=== PATIENT | female | born 1980 | race Caucasian/White ===

== ENCOUNTER 2018-06-28 12:33 | Inpatient (IN) | payer BC, OTHER ==
[2018-06-28 16:46] LABS: ADD MAN DIFF? NO
[2018-06-28] MEDS: SODIUM CHLORIDE 0.9% 1L BAG IV* (16:51)
[2018-06-28 16:54] LABS: BASOPHILS % 0.4 % (0.0-2.0); EOSINOPHILS # 0.1 10^3/ul (0.0-0.5); EOSINOPHILS % 0.5 % (0.0-7.0); HEMATOCRIT 29.9 % (37.0-47.0); HEMOGLOBIN 9.6 g/dl (12.0-16.0); LYMPHOCYTES # 1.4 10^3/ul (0.8-2.9); LYMPHOCYTES % 13.3 % (15.0-51.0); MEAN CORPUSCULAR HEMOGLOBIN 28.9 pg (29.0-33.0); MEAN CORPUSCULAR HGB CONC 32.1 g/dl (32.0-37.0); MEAN CORPUSCULAR VOLUME 90.1 fl (82.0-101.0); MONOCYTE # 0.6 10^3/ul (0.3-0.9); MONOCYTES % 5.6 % (0.0-11.0); NEUTROPHIL # 8.4 10^3/ul (1.6-7.5); NEUTROPHILS % 79.6 % (39.0-77.0); PLATELET COUNT 230 10^3/UL (140-415); RED BLOOD COUNT 3.32 10^6/ul (4.20-5.40); RED CELL DISTRIBUTION WIDTH 14.6 % (11.5-14.5)
[2018-06-28 16:54] LABS: WHITE BLOOD COUNT 10.5 10^3/ul (4.8-10.8)
[2018-06-28] MEDS: PIPER-TAZO 3.375 GM IV (PMX) 100 ML IVPB ×2 (16:54→23:40)
[2018-06-28 17:01] LABS: ADD UMIC YES; UR ASCORBIC ACID NEGATIVE (NEGATIVE); UR BACTERIA MANY /HPF (NONE SEEN); UR BILIRUBIN (Dip) NEGATIVE (NEGATIVE); UR BLOOD (Dip) 3+ mg/dL (NEGATIVE); UR CLARITY CLOUDY (CLEAR); UR COLOR YELLOW (YELLOW); UR GLUCOSE (Dip) NEGATIVE (NEGATIVE); UR KETONES (Dip) NEGATIVE (NEGATIVE); UR LEUKOCYTE ESTERASE (Dip) 3+ Leu/ul (NEGATIVE); UR NITRITE (Dip) POSITIVE (NEGATIVE); UR RBC 10 /HPF (0-5); UR SPECIFIC GRAVITY (Dip) 1.009 (1.003-1.030); UR SQUAMOUS EPITHELIAL CELL FEW /HPF (FEW); UR TOTAL PROTEIN (Dip) 1+ mg/dl (NEGATIVE); UR UROBILINOGEN (Dip) NEGATIVE (NEGATIVE); UR WBC 79 /HPF (0-5)
[2018-06-28 17:09] LABS: INR 1.45; PROTIME 17.7 Sec (11.9-14.9); PT RATIO 1.4
[2018-06-28 17:14] LABS: ALANINE AMINOTRANSFERASE 16 IU/L (13-69); ALBUMIN 3.2 g/dl (3.3-4.9); ALBUMIN/GLOBULIN RATIO 0.91; ALKALINE PHOSPHATASE 53 IU/L (42-121); ANION GAP 12 (5-13); ASPARTATE AMINO TRANSFERASE 18 IU/L (15-46); BILIRUBIN,INDIRECT 0.2 mg/dl (0-1.1); BILIRUBIN,TOTAL 0.2 mg/dl (0.2-1.3); BLOOD UREA NITROGEN 8 mg/dl (7-20); CALCIUM 8.1 mg/dl (8.4-10.2); CARBON DIOXIDE 30 mmol/L (21-31); CREATININE 0.64 mg/dl (0.44-1.00); Estimated GFR > 60 mL/min (>60); GLUCOSE 83 mg/dl (70-220); POTASSIUM 3.2 mmol/L (3.5-5.1); SODIUM 137 mmol/L (135-144); TOTAL PROTEIN 6.7 g/dl (6.1-8.1)
[2018-06-28 17:15] LABS: CHLORIDE 95 mmol/L (97-110)
[2018-06-28] MEDS: VANCOMYCIN 1 GM (PMX) 250 ML IVPB (17:29)
[2018-06-28] MEDS ORDERED: NACL 0.9% 3 ML SYG IV (18:30)
[2018-06-28] MEDS ORDERED: VANCOMYCIN IV PER PHARMACY XX (18:30)
[2018-06-28 18:58] LABS: HEMOGLOBIN A1C 5.1 % (0-5.9)
[2018-06-28] MEDS ORDERED: ACETAMINOPHEN 325 MG TAB PO (19:00)
[2018-06-28] MEDS ORDERED: ONDANSETRON 4 MG INJ IV (19:00)
[2018-06-28 19:08] LABS: C-REACTIVE PROTEIN 22.7 mg/dl (0.0-0.9)
[2018-06-28 19:53] LABS: ERYTHROCYTE SEDIMENTATION RATE 60 mm/Hr (0-20)
[2018-06-28] MEDS: IOHEXOL 300MG/ML 150 ML BTL (20:15)
[2018-06-28] MEDS: SOD CHLORIDE 0.9% 100 ML (20:15)
[2018-06-28] MEDS: POLYETHYLENE GLYCOL 17 GM PACKET PO (21:25)
[2018-06-28] MEDS: SOD CHLORIDE 0.9% 1,000 ML IV (21:25)
[2018-06-28] MEDS: HYDROmorphONE 2 MG TAB PO (21:26)
[2018-06-28] MEDS: GABAPENTIN 400 MG CAP PO (21:26)
[2018-06-28] MEDS: POTASSIUM CHLORIDE (SR) 20 MEQ TAB PO (21:26)
[2018-06-28] MEDS: BACLOFEN 10 MG TAB PO (21:26)
[2018-06-28] MEDS: NORTRIPTYLINE 10 MG CAP PO (22:34)
[2018-06-28 22:57] LABS: LACTIC ACID 1.6 mmol/L (0.5-2.0)
[2018-06-29] MEDS ORDERED: PENDING SANTYL ORDER FOR WOUND CARE XX ×2 (02:30→11:00)
[2018-06-29] MEDS ORDERED: COLLAGENASE 5 GM (UD JAR) TOP (02:36)
[2018-06-29] MEDS: VANCOMYCIN 750 MG (PMX) 250 ML IVPB ×2 (04:51→16:58)
[2018-06-29] MEDS: PIPER-TAZO 3.375 GM IV (PMX) 100 ML IVPB ×3 (05:35→18:08)
[2018-06-29 05:52] LABS: ADD MAN DIFF? NO
[2018-06-29] MEDS: HYDROmorphONE 2 MG TAB PO ×4 (05:52→22:47)
[2018-06-29 06:01] LABS: BASOPHILS % 0.2 % (0.0-2.0); EOSINOPHILS # 0.2 10^3/ul (0.0-0.5); EOSINOPHILS % 1.2 % (0.0-7.0); HEMATOCRIT 28.2 % (37.0-47.0); HEMOGLOBIN 8.8 g/dl (12.0-16.0); LYMPHOCYTES # 1.2 10^3/ul (0.8-2.9); LYMPHOCYTES % 9.7 % (15.0-51.0); MEAN CORPUSCULAR HEMOGLOBIN 28.7 pg (29.0-33.0); MEAN CORPUSCULAR HGB CONC 31.2 g/dl (32.0-37.0); MEAN CORPUSCULAR VOLUME 91.9 fl (82.0-101.0); MEAN PLATELET VOLUME 10.5 fl (7.4-10.4); MONOCYTE # 0.8 10^3/ul (0.3-0.9); MONOCYTES % 6.5 % (0.0-11.0); NEUTROPHIL # 10.3 10^3/ul (1.6-7.5); PLATELET COUNT 229 10^3/UL (140-415); RED BLOOD COUNT 3.07 10^6/ul (4.20-5.40); RED CELL DISTRIBUTION WIDTH 14.8 % (11.5-14.5)
[2018-06-29 06:01] LABS: WHITE BLOOD COUNT 12.5 10^3/ul (4.8-10.8)
[2018-06-29 06:38] LABS: MAGNESIUM 1.8 mg/dl (1.7-2.5)
[2018-06-29 06:38] LABS: CHOL/HDL RATIO 5.2 RATIO; CHOLESTEROL 79 mg/dl (100-200); HDL CHOLESTEROL 15 mg/dl (34-88); LDL CHOLESTEROL,CALCULATED 52 mg/dl; TRIGLYCERIDES 61 mg/dl (0-149)
[2018-06-29 06:43] LABS: HEMOGLOBIN A1C 5.2 % (0-5.9)
[2018-06-29 06:47] LABS: ALANINE AMINOTRANSFERASE 16 IU/L (13-69); ALBUMIN 2.5 g/dl (3.3-4.9); ALBUMIN/GLOBULIN RATIO 0.86; ALKALINE PHOSPHATASE 48 IU/L (42-121); ANION GAP 4 (5-13); ASPARTATE AMINO TRANSFERASE 14 IU/L (15-46); BLOOD UREA NITROGEN 4 mg/dl (7-20); CALCIUM 7.6 mg/dl (8.4-10.2); CARBON DIOXIDE 25 mmol/L (21-31); CHLORIDE 107 mmol/L (97-110); CREATININE 0.52 mg/dl (0.44-1.00); Estimated GFR > 60 mL/min (>60); GLUCOSE 104 mg/dl (70-220); POTASSIUM 3.6 mmol/L (3.5-5.1); SODIUM 136 mmol/L (135-144); TOTAL PROTEIN 5.4 g/dl (6.1-8.1)
[2018-06-29 06:47] LABS: PHOSPHORUS 3.4 mg/dl (2.5-4.9)
[2018-06-29] MEDS: SOD CHLORIDE 0.9% 1,000 ML IV ×4 (07:45→20:57)
[2018-06-29] MEDS: morphine (ER) 30 MG TAB PO ×2 (08:50→20:47)
[2018-06-29] MEDS: ENOXAPARIN 30 MG/0.3 ML SYG SC (08:52)
[2018-06-29] MEDS: POLYETHYLENE GLYCOL 17 GM PACKET PO ×2 (09:00→20:48)
[2018-06-29] MEDS: ONDANSETRON 4 MG INJ IV (10:06)
[2018-06-29] MEDS: BACLOFEN 10 MG TAB PO ×3 (10:11→20:45)
[2018-06-29] MEDS: GABAPENTIN 400 MG CAP PO ×3 (10:12→20:46)
[2018-06-29] MEDS: SODIUM HYPOCHLORITE (1/40) 1 APPLIC BTL IRR ×2 (12:04→20:49)
[2018-06-29] MEDS: COLLAGENASE 5 GM (UD JAR) TOP ×2 (12:04→20:48)
[2018-06-29 13:27] LABS: AMPHETAMINE/METHAMPHETAMINE Negative (NEGATIVE); BARBITURATES Negative (NEGATIVE); BENZODIAZEPINES Negative (NEGATIVE); CANNABINOIDS Negative (NEGATIVE); COCAINE Negative (NEGATIVE)
[2018-06-29 13:31] LABS: OPIATES Positive (NEGATIVE)
[2018-06-29] MEDS: BISACODYL (EC) 5 MG TAB PO (15:12)
[2018-06-29] MEDS: ACETAMINOPHEN 325 MG TAB PO (19:07)
[2018-06-29] MEDS: NORTRIPTYLINE 10 MG CAP PO (20:45)
[2018-06-30] MEDS: PIPER-TAZO 3.375 GM IV (PMX) 100 ML IVPB ×5 (00:12→23:58)
[2018-06-30] MEDS: SOD CHLORIDE 0.9% 1,000 ML IV ×3 (02:34→14:37)
[2018-06-30] MEDS: HYDROmorphONE 2 MG TAB PO ×3 (03:50→20:40)
[2018-06-30 04:17] LABS: ADD MAN DIFF? NO
[2018-06-30 04:21] LABS: BASOPHILS % 0.4 % (0.0-2.0); EOSINOPHILS # 0.2 10^3/ul (0.0-0.5); EOSINOPHILS % 2.9 % (0.0-7.0); HEMATOCRIT 30.7 % (37.0-47.0); HEMOGLOBIN 9.1 g/dl (12.0-16.0); LYMPHOCYTES # 1.2 10^3/ul (0.8-2.9); LYMPHOCYTES % 16.5 % (15.0-51.0); MEAN CORPUSCULAR HEMOGLOBIN 28.4 pg (29.0-33.0); MEAN CORPUSCULAR HGB CONC 29.6 g/dl (32.0-37.0); MEAN CORPUSCULAR VOLUME 95.9 fl (82.0-101.0); MEAN PLATELET VOLUME 10.6 fl (7.4-10.4); MONOCYTE # 0.5 10^3/ul (0.3-0.9); MONOCYTES % 6.1 % (0.0-11.0); NEUTROPHIL # 5.5 10^3/ul (1.6-7.5); NEUTROPHILS % 73.6 % (39.0-77.0); PLATELET COUNT 229 10^3/UL (140-415); RED CELL DISTRIBUTION WIDTH 14.6 % (11.5-14.5)
[2018-06-30 04:21] LABS: WHITE BLOOD COUNT 7.5 10^3/ul (4.8-10.8)
[2018-06-30 04:41] LABS: ANION GAP 5 (5-13); BLOOD UREA NITROGEN 4 mg/dl (7-20); CALCIUM 7.7 mg/dl (8.4-10.2); CARBON DIOXIDE 23 mmol/L (21-31); CHLORIDE 114 mmol/L (97-110); CREATININE 0.49 mg/dl (0.44-1.00); Estimated GFR > 60 mL/min (>60); GLUCOSE 114 mg/dl (70-220); POTASSIUM 3.3 mmol/L (3.5-5.1); SODIUM 142 mmol/L (135-144)
[2018-06-30 04:43] LABS: PHOSPHORUS 3.7 mg/dl (2.5-4.9)
[2018-06-30 04:46] LABS: VANCOMYCIN,TROUGH 7.2 ug/ml (10.0-20.0)
[2018-06-30] MEDS: VANCOMYCIN 1 GM 250 ML IVPB ×2 (05:00→18:03)
[2018-06-30] MEDS: SILVER NITRATE SWAB TOP (08:00)
[2018-06-30] MEDS: morphine (ER) 30 MG TAB PO ×2 (09:00→21:45)
[2018-06-30] MEDS: ENOXAPARIN 30 MG/0.3 ML SYG SC (09:00)
[2018-06-30] MEDS: COLLAGENASE 5 GM (UD JAR) TOP ×2 (09:00→21:46)
[2018-06-30] MEDS: LIDOCAINE 1%/EPI 30 ML INJ INJ (09:00)
[2018-06-30] MEDS: POLYETHYLENE GLYCOL 17 GM PACKET PO ×2 (09:00→20:42)
[2018-06-30] MEDS: SODIUM HYPOCHLORITE (1/40) 1 APPLIC BTL IRR ×2 (09:00→21:46)
[2018-06-30] MEDS: BACLOFEN 10 MG TAB PO ×3 (09:04→20:40)
[2018-06-30] MEDS: GABAPENTIN 400 MG CAP PO ×3 (09:04→20:41)
[2018-06-30] MEDS: LIDOCAINE 1%/EPI (MDV) 50 ML INJ INJ (14:00)
[2018-06-30] MEDS: POTASSIUM CHLORIDE (SR) 10 MEQ TAB PO (18:04)
[2018-06-30] MEDS: NORTRIPTYLINE 10 MG CAP PO (20:41)
[2018-07-01] MEDS: VANCOMYCIN 1 GM 250 ML IVPB (04:55)
[2018-07-01] MEDS: HYDROmorphONE 2 MG TAB PO ×3 (05:30→18:19)
[2018-07-01 06:07] LABS: ADD MAN DIFF? NO
[2018-07-01 06:08] LABS: BASOPHILS % 0.3 % (0.0-2.0); EOSINOPHILS # 0.3 10^3/ul (0.0-0.5); EOSINOPHILS % 2.8 % (0.0-7.0); HEMATOCRIT 32.8 % (37.0-47.0); HEMOGLOBIN 10.2 g/dl (12.0-16.0); LYMPHOCYTES # 2.1 10^3/ul (0.8-2.9); LYMPHOCYTES % 22.9 % (15.0-51.0); MEAN CORPUSCULAR HEMOGLOBIN 28.6 pg (29.0-33.0); MEAN CORPUSCULAR HGB CONC 31.1 g/dl (32.0-37.0); MEAN CORPUSCULAR VOLUME 91.9 fl (82.0-101.0); MEAN PLATELET VOLUME 10.2 fl (7.4-10.4); MONOCYTE # 0.5 10^3/ul (0.3-0.9); MONOCYTES % 5.1 % (0.0-11.0); NEUTROPHIL # 6.1 10^3/ul (1.6-7.5); NEUTROPHILS % 68.7 % (39.0-77.0); PLATELET COUNT 348 10^3/UL (140-415); RED BLOOD COUNT 3.57 10^6/ul (4.20-5.40); RED CELL DISTRIBUTION WIDTH 14.6 % (11.5-14.5)
[2018-07-01 06:43] LABS: ANION GAP 6 (5-13); BLOOD UREA NITROGEN 3 mg/dl (7-20); CALCIUM 8.3 mg/dl (8.4-10.2); CARBON DIOXIDE 24 mmol/L (21-31); CHLORIDE 110 mmol/L (97-110); CREATININE 0.48 mg/dl (0.44-1.00); Estimated GFR > 60 mL/min (>60); GLUCOSE 79 mg/dl (70-220); POTASSIUM 3.8 mmol/L (3.5-5.1); SODIUM 140 mmol/L (135-144)
[2018-07-01] MEDS: PIPER-TAZO 3.375 GM IV (PMX) 100 ML IVPB ×2 (06:55→11:57)
[2018-07-01 06:56] LABS: PHOSPHORUS 3.6 mg/dl (2.5-4.9)
[2018-07-01] MEDS: SOD CHLORIDE 0.9% 1,000 ML IV ×2 (06:56→23:21)
[2018-07-01] MEDS: POLYETHYLENE GLYCOL 17 GM PACKET PO ×2 (09:00→21:00)
[2018-07-01] MEDS: morphine (ER) 30 MG TAB PO ×2 (10:27→21:20)
[2018-07-01] MEDS: ENOXAPARIN 30 MG/0.3 ML SYG SC (10:27)
[2018-07-01] MEDS: BACLOFEN 10 MG TAB PO ×3 (10:27→21:20)
[2018-07-01] MEDS: GABAPENTIN 400 MG CAP PO ×3 (10:27→21:21)
[2018-07-01] MEDS: COLLAGENASE 5 GM (UD JAR) TOP ×2 (10:28→21:23)
[2018-07-01] MEDS: SODIUM HYPOCHLORITE (1/40) 1 APPLIC BTL IRR ×2 (10:33→21:23)
[2018-07-01] MEDS: CEFTRIAXONE 1 GM/50 ML (PMX) 50 ML IVPB (16:07)
[2018-07-01] MEDS: NORTRIPTYLINE 10 MG CAP PO (21:21)
[2018-07-01] MEDS: BALSAM PERU/CASTOR OIL 60 GM TUBE TOP (21:23)
[2018-07-02] MEDS: HYDROmorphONE 2 MG TAB PO ×4 (04:00→22:40)
[2018-07-02 05:51] LABS: ADD MAN DIFF? NO
[2018-07-02 06:07] LABS: WHITE BLOOD COUNT 6.3 10^3/ul (4.8-10.8)
[2018-07-02 06:07] LABS: BASOPHILS % 0.5 % (0.0-2.0); EOSINOPHILS # 0.3 10^3/ul (0.0-0.5); EOSINOPHILS % 5.3 % (0.0-7.0); HEMOGLOBIN 9.1 g/dl (12.0-16.0); LYMPHOCYTES # 1.7 10^3/ul (0.8-2.9); LYMPHOCYTES % 26.6 % (15.0-51.0); MEAN CORPUSCULAR HEMOGLOBIN 28.5 pg (29.0-33.0); MEAN CORPUSCULAR HGB CONC 31.4 g/dl (32.0-37.0); MEAN CORPUSCULAR VOLUME 90.9 fl (82.0-101.0); MEAN PLATELET VOLUME 10.1 fl (7.4-10.4); MONOCYTE # 0.4 10^3/ul (0.3-0.9); MONOCYTES % 6.1 % (0.0-11.0); NEUTROPHIL # 3.8 10^3/ul (1.6-7.5); NEUTROPHILS % 61.2 % (39.0-77.0); PLATELET COUNT 403 10^3/UL (140-415); RED BLOOD COUNT 3.19 10^6/ul (4.20-5.40); RED CELL DISTRIBUTION WIDTH 14.6 % (11.5-14.5)
[2018-07-02 06:56] LABS: ANION GAP 8 (5-13); CALCIUM 8.3 mg/dl (8.4-10.2); CARBON DIOXIDE 24 mmol/L (21-31); CHLORIDE 111 mmol/L (97-110); CREATININE 0.48 mg/dl (0.44-1.00); Estimated GFR > 60 mL/min (>60); GLUCOSE 82 mg/dl (70-220); POTASSIUM 3.4 mmol/L (3.5-5.1); SODIUM 143 mmol/L (135-144)
[2018-07-02 07:00] LABS: PHOSPHORUS 4.1 mg/dl (2.5-4.9)
[2018-07-02 07:00] LABS: MAGNESIUM 1.9 mg/dl (1.7-2.5)
[2018-07-02 07:01] LABS: BLOOD UREA NITROGEN < 2 mg/dl (7-20)
[2018-07-02] MEDS: POLYETHYLENE GLYCOL 17 GM PACKET PO ×2 (09:00→21:00)
[2018-07-02] MEDS: COLLAGENASE 5 GM (UD JAR) TOP ×2 (09:31→21:00)
[2018-07-02] MEDS: morphine (ER) 30 MG TAB PO ×2 (09:31→21:51)
[2018-07-02] MEDS: BACLOFEN 10 MG TAB PO ×3 (09:31→21:51)
[2018-07-02] MEDS: ENOXAPARIN 30 MG/0.3 ML SYG SC (09:31)
[2018-07-02] MEDS: GABAPENTIN 400 MG CAP PO ×3 (09:31→21:51)
[2018-07-02] MEDS: BALSAM PERU/CASTOR OIL 60 GM TUBE TOP ×2 (09:34→21:56)
[2018-07-02] MEDS: SODIUM HYPOCHLORITE (1/40) 1 APPLIC BTL IRR ×2 (09:34→21:56)
[2018-07-02] MEDS: SOD CHLORIDE 0.9% 1,000 ML IV (13:53)
[2018-07-02] MEDS: POTASSIUM CHLORIDE (SR) 20 MEQ TAB PO (15:14)
[2018-07-02] MEDS: CEFTRIAXONE 1 GM/50 ML (PMX) 50 ML IVPB (15:14)
[2018-07-02] MEDS: FAMOTIDINE 20 MG TAB PO (21:51)
[2018-07-02] MEDS: NORTRIPTYLINE 10 MG CAP PO (21:51)
[2018-07-02] MEDS: ASCORBIC ACID 500 MG TAB PO (21:51)
[2018-07-02] MEDS: LACTOBACILLUS RHAMNOSUS CAP PO (21:51)
[2018-07-03] MEDS: SOD CHLORIDE 0.9% 1,000 ML IV (03:01)
[2018-07-03] MEDS ORDERED: AL HYDROX/MG HYDROX/SIMETH 30 ML CUP PO (03:30)
[2018-07-03] MEDS: LACTOBACILLUS RHAMNOSUS CAP PO ×2 (08:26→20:47)
[2018-07-03] MEDS: COLLAGENASE 5 GM (UD JAR) TOP ×2 (08:26→20:49)
[2018-07-03] MEDS: BALSAM PERU/CASTOR OIL 60 GM TUBE TOP ×2 (08:26→20:50)
[2018-07-03] MEDS: GABAPENTIN 400 MG CAP PO ×4 (08:26→20:48)
[2018-07-03] MEDS: ASCORBIC ACID 500 MG TAB PO ×2 (08:26→20:48)
[2018-07-03] MEDS: BACLOFEN 10 MG TAB PO ×3 (08:27→20:48)
[2018-07-03] MEDS: ZINC SULFATE 220 MG CAP PO (08:27)
[2018-07-03] MEDS: HYDROmorphONE 2 MG TAB PO ×3 (08:28→22:25)
[2018-07-03] MEDS: ENOXAPARIN 40 MG/0.4 ML SYG SC (08:29)
[2018-07-03] MEDS: POLYETHYLENE GLYCOL 17 GM PACKET PO ×2 (08:29→20:47)
[2018-07-03] MEDS: SODIUM HYPOCHLORITE (1/40) 1 APPLIC BTL IRR ×2 (08:34→20:49)
[2018-07-03 08:39] LABS: ADD MAN DIFF? NO
[2018-07-03 08:42] LABS: BASOPHILS % 0.5 % (0.0-2.0); EOSINOPHILS # 0.3 10^3/ul (0.0-0.5); EOSINOPHILS % 3.9 % (0.0-7.0); HEMATOCRIT 33.3 % (37.0-47.0); HEMOGLOBIN 10.3 g/dl (12.0-16.0); LYMPHOCYTES # 1.3 10^3/ul (0.8-2.9); LYMPHOCYTES % 19.8 % (15.0-51.0); MEAN CORPUSCULAR HEMOGLOBIN 28.4 pg (29.0-33.0); MEAN CORPUSCULAR HGB CONC 30.9 g/dl (32.0-37.0); MEAN CORPUSCULAR VOLUME 91.7 fl (82.0-101.0); MEAN PLATELET VOLUME 9.6 fl (7.4-10.4); MONOCYTE # 0.4 10^3/ul (0.3-0.9); MONOCYTES % 5.6 % (0.0-11.0); NEUTROPHIL # 4.6 10^3/ul (1.6-7.5); NEUTROPHILS % 69.7 % (39.0-77.0); PLATELET COUNT 462 10^3/UL (140-415); RED BLOOD COUNT 3.63 10^6/ul (4.20-5.40); RED CELL DISTRIBUTION WIDTH 14.7 % (11.5-14.5)
[2018-07-03 08:42] LABS: WHITE BLOOD COUNT 6.7 10^3/ul (4.8-10.8)
[2018-07-03 09:09] LABS: ANION GAP 11 (5-13); BLOOD UREA NITROGEN 3 mg/dl (7-20); CALCIUM 8.6 mg/dl (8.4-10.2); CARBON DIOXIDE 25 mmol/L (21-31); CHLORIDE 108 mmol/L (97-110); CREATININE 0.52 mg/dl (0.44-1.00); Estimated GFR > 60 mL/min (>60); GLUCOSE 107 mg/dl (70-220); POTASSIUM 3.8 mmol/L (3.5-5.1); SODIUM 144 mmol/L (135-144)
[2018-07-03 09:09] LABS: PHOSPHORUS 4.9 mg/dl (2.5-4.9)
[2018-07-03] MEDS: morphine (ER) 30 MG TAB PO ×2 (09:22→20:48)
[2018-07-03] MEDS ORDERED: VANCOMYCIN IV PER PHARMACY XX (12:30)
[2018-07-03] MEDS: ONDANSETRON 4 MG INJ IV (12:47)
[2018-07-03] MEDS: BISACODYL (EC) 5 MG TAB PO (12:47)
[2018-07-03] MEDS ORDERED: VANCOMYCIN HCL 1.25 GM in SOD CHLORIDE 0.9% 250 ML IVPB (15:00)
[2018-07-03] MEDS: CEFTRIAXONE 1 GM/50 ML (PMX) 50 ML IVPB (15:00)
[2018-07-03] MEDS: clonAZEPAM 0.5 MG TAB PO (17:15)
[2018-07-03] MEDS: FAMOTIDINE 20 MG TAB PO (20:48)
[2018-07-03] MEDS: NORTRIPTYLINE 10 MG CAP PO (20:49)
[2018-07-03] MEDS ORDERED: VANCOMYCIN 750 MG (PMX) 250 ML IVPB (23:00)
[2018-07-04] MEDS: HYDROmorphONE 2 MG TAB PO ×4 (04:51→23:41)
[2018-07-04] MEDS: ACETAMINOPHEN 325 MG TAB PO (06:41)
[2018-07-04] MEDS: GABAPENTIN 400 MG CAP PO ×4 (08:47→21:02)
[2018-07-04] MEDS: LACTOBACILLUS RHAMNOSUS CAP PO ×2 (08:47→21:01)
[2018-07-04] MEDS: morphine (ER) 30 MG TAB PO ×2 (08:48→21:02)
[2018-07-04] MEDS: ASCORBIC ACID 500 MG TAB PO ×2 (08:49→21:03)
[2018-07-04] MEDS: POLYETHYLENE GLYCOL 17 GM PACKET PO ×2 (08:49→21:00)
[2018-07-04] MEDS: COLLAGENASE 5 GM (UD JAR) TOP ×2 (08:49→21:00)
[2018-07-04] MEDS: ZINC SULFATE 220 MG CAP PO (08:49)
[2018-07-04] MEDS: BACLOFEN 10 MG TAB PO ×3 (08:49→21:02)
[2018-07-04] MEDS: ENOXAPARIN 40 MG/0.4 ML SYG SC (08:52)
[2018-07-04] MEDS: SODIUM HYPOCHLORITE (1/40) 1 APPLIC BTL IRR ×2 (08:53→21:09)
[2018-07-04] MEDS: BALSAM PERU/CASTOR OIL 60 GM TUBE TOP ×2 (08:53→21:08)
[2018-07-04] MEDS ORDERED: BISACODYL (EC) 5 MG TAB PO (14:30)
[2018-07-04] MEDS: LIDOCAINE 1% (MPF) 5 ML VIAL SC (15:05)
[2018-07-04] MEDS: CEFTRIAXONE 1 GM/50 ML (PMX) 50 ML IVPB (17:26)
[2018-07-04] MEDS: VANCOMYCIN HCL 1.25 GM in SOD CHLORIDE 0.9% 250 ML IVPB (17:34)
[2018-07-04] MEDS: NORTRIPTYLINE 10 MG CAP PO (21:01)
[2018-07-04] MEDS: FAMOTIDINE 20 MG TAB PO (21:02)
[2018-07-04] MEDS: BISACODYL 10 MG SUPP PR (21:45)
[2018-07-05] MEDS: VANCOMYCIN 750 MG (PMX) 250 ML IVPB ×3 (00:56→17:48)
[2018-07-05] MEDS: HYDROmorphONE 2 MG TAB PO ×3 (05:57→18:56)
[2018-07-05] MEDS: morphine (ER) 30 MG TAB PO ×2 (08:58→21:25)
[2018-07-05] MEDS: ASCORBIC ACID 500 MG TAB PO ×2 (08:58→21:24)
[2018-07-05] MEDS: ZINC SULFATE 220 MG CAP PO (08:58)
[2018-07-05] MEDS: GABAPENTIN 400 MG CAP PO ×4 (08:58→21:24)
[2018-07-05] MEDS: ENOXAPARIN 40 MG/0.4 ML SYG SC (08:58)
[2018-07-05] MEDS: LACTOBACILLUS RHAMNOSUS CAP PO ×2 (08:59→21:24)
[2018-07-05] MEDS: BACLOFEN 10 MG TAB PO ×3 (08:59→21:24)
[2018-07-05] MEDS: COLLAGENASE 5 GM (UD JAR) TOP ×2 (09:00→21:00)
[2018-07-05] MEDS: POLYETHYLENE GLYCOL 17 GM PACKET PO ×2 (09:00→21:00)
[2018-07-05] MEDS: SODIUM HYPOCHLORITE (1/40) 1 APPLIC BTL IRR ×2 (09:01→21:29)
[2018-07-05] MEDS: BALSAM PERU/CASTOR OIL 60 GM TUBE TOP ×2 (09:01→21:29)
[2018-07-05] MEDS: ACETAMINOPHEN 325 MG TAB PO (11:11)
[2018-07-05] MEDS: CEFTRIAXONE 1 GM/50 ML (PMX) 50 ML IVPB (14:59)
[2018-07-05 16:37] LABS: CREATININE 0.48 mg/dl (0.44-1.00)
[2018-07-05 16:37] LABS: BLOOD UREA NITROGEN 12 mg/dl (7-20)
[2018-07-05] MEDS: MAGNESIUM HYDROXIDE 30ML CUP PO (18:56)
[2018-07-05] MEDS: FAMOTIDINE 20 MG TAB PO (21:00)
[2018-07-05] MEDS: NORTRIPTYLINE 10 MG CAP PO (21:24)
[2018-07-06] MEDS: HYDROmorphONE 2 MG TAB PO ×4 (01:09→19:13)
[2018-07-06] MEDS: VANCOMYCIN 1 GM 250 ML IVPB ×2 (05:34→17:00)
[2018-07-06] MEDS: ZINC SULFATE 220 MG CAP PO (09:00)
[2018-07-06] MEDS: POLYETHYLENE GLYCOL 17 GM PACKET PO (09:00)
[2018-07-06] MEDS: BACLOFEN 10 MG TAB PO ×2 (10:03→13:00)
[2018-07-06] MEDS: ASCORBIC ACID 500 MG TAB PO (10:03)
[2018-07-06] MEDS: GABAPENTIN 400 MG CAP PO ×3 (10:03→19:12)
[2018-07-06] MEDS: morphine (ER) 30 MG TAB PO (10:07)
[2018-07-06] MEDS: LACTOBACILLUS RHAMNOSUS CAP PO (10:08)
[2018-07-06] MEDS: ENOXAPARIN 40 MG/0.4 ML SYG SC (10:13)
[2018-07-06] MEDS: BALSAM PERU/CASTOR OIL 60 GM TUBE TOP (18:00)
[2018-07-06] MEDS: SODIUM HYPOCHLORITE (1/40) 1 APPLIC BTL IRR (18:00)
[2018-07-06] MEDS: COLLAGENASE 5 GM (UD JAR) TOP (18:00)
== END 2018-07-06 19:55 | disposition home health service (06) | DRG 571 ==
LOC: E/R 12:33 → PP2 18:38
PROC: 0JB90ZZ Excision of Buttock Subcutaneous Tissue and Fascia, Open Approach (ICD-10-PCS; principal; 2018-06-30)
PROC: 0KBN0ZZ Excision of Right Hip Muscle, Open Approach (ICD-10-PCS; 2018-06-30)
PROC: 02HV33Z Insertion of Infusion Device into Superior Vena Cava, Percutaneous Approach (ICD-10-PCS; 2018-07-04)
DX: L89.154 Pressure ulcer of sacral region, stage 4 (principal); T83.511A Infection and inflammatory reaction due to indwelling urethral catheter, initial encounter; G82.20 Paraplegia, unspecified; N39.0 Urinary tract infection, site not specified; R65.10 Systemic inflammatory response syndrome (SIRS) of non-infectious origin without acute organ dysfunction; E44.0 Moderate protein-calorie malnutrition; M46.28 Osteomyelitis of vertebra, sacral and sacrococcygeal region; L08.89 Other specified local infections of the skin and subcutaneous tissue; L89.323 Pressure ulcer of left buttock, stage 3; B95.62 Methicillin resistant Staphylococcus aureus infection as the cause of diseases classified elsewhere; Z68.23 Body mass index [BMI] 23.0-23.9, adult; G89.4 Chronic pain syndrome; F32.9 Major depressive disorder, single episode, unspecified; Z72.0 Tobacco use; Z99.3 Dependence on wheelchair; E83.51 Hypocalcemia; E88.09 Other disorders of plasma-protein metabolism, not elsewhere classified; N31.8 Other neuromuscular dysfunction of bladder; F11.90 Opioid use, unspecified, uncomplicated; B96.4 Proteus (mirabilis) (morganii) as the cause of diseases classified elsewhere; B96.1 Klebsiella pneumoniae [K. pneumoniae] as the cause of diseases classified elsewhere
CPT/HCPCS: 36569; 71045; 74177; 76937; 80048; 80053; 80061; 80202; 80307; 81001; 81025; 82565; 83036; 83605; 83735; 84100; 84443; 84520; 85025; 85610; 85651; 85730; 86140; 87040; 87070; 87081; 87086; 96374; 96375; 99285-25

== ENCOUNTER 2018-07-21 05:57 | Emergency (ER) | payer BC, OTHER | END 2018-07-21 08:05 | disposition home or self-care (01) | LOC: FTE 05:57 | DX: G82.20 Paraplegia, unspecified (principal); L89.159 Pressure ulcer of sacral region, unspecified stage; Z22.322 Carrier or suspected carrier of Methicillin resistant Staphylococcus aureus; Z45.2 Encounter for adjustment and management of vascular access device; Z46.6 Encounter for fitting and adjustment of urinary device | CPT/HCPCS: 51702; 99283-25 ==

== ENCOUNTER 2018-08-13 11:23 | Inpatient (IN) | payer BC, OTHER ==
[2018-08-13 11:51] LABS: ADD MAN DIFF? NO
[2018-08-13] MEDS: LIDOCAINE 1% (MPF) 5 ML VIAL SC (11:51)
[2018-08-13] MEDS: SODIUM CHLORIDE 0.9% 1L BAG IV* (11:51)
[2018-08-13 12:06] LABS: WHITE BLOOD COUNT 6.6 10^3/ul (4.8-10.8)
[2018-08-13 12:06] LABS: BASOPHILS % 0.5 % (0.0-2.0); EOSINOPHILS # 0.2 10^3/ul (0.0-0.5); EOSINOPHILS % 3.3 % (0.0-7.0); HEMATOCRIT 29.1 % (37.0-47.0); LYMPHOCYTES # 1.1 10^3/ul (0.8-2.9); MEAN CORPUSCULAR HEMOGLOBIN 27.3 pg (29.0-33.0); MEAN CORPUSCULAR HGB CONC 30.9 g/dl (32.0-37.0); MEAN CORPUSCULAR VOLUME 88.2 fl (82.0-101.0); MEAN PLATELET VOLUME 9.6 fl (7.4-10.4); MONOCYTE # 0.6 10^3/ul (0.3-0.9); MONOCYTES % 8.5 % (0.0-11.0); NEUTROPHIL # 4.7 10^3/ul (1.6-7.5); NEUTROPHILS % 70.6 % (39.0-77.0); PLATELET COUNT 262 10^3/UL (140-415); RED CELL DISTRIBUTION WIDTH 14.2 % (11.5-14.5)
[2018-08-13 12:22] LABS: INR 1.17; PT RATIO 1.2
[2018-08-13 12:23] LABS: PARTIAL THROMBOPLASTIN TIME 38.6 Sec (23.0-35.0)
[2018-08-13 12:29] LABS: ALANINE AMINOTRANSFERASE 23 IU/L (13-69); ALBUMIN 3.3 g/dl (3.3-4.9); ALBUMIN/GLOBULIN RATIO 0.94; ALKALINE PHOSPHATASE 65 IU/L (42-121); ANION GAP 8 (5-13); ASPARTATE AMINO TRANSFERASE 30 IU/L (15-46); BILIRUBIN,INDIRECT 0.1 mg/dl (0-1.1); BILIRUBIN,TOTAL 0.1 mg/dl (0.2-1.3); BLOOD UREA NITROGEN 14 mg/dl (7-20); CALCIUM 8.4 mg/dl (8.4-10.2); CARBON DIOXIDE 29 mmol/L (21-31); CHLORIDE 101 mmol/L (97-110); CREATININE 0.54 mg/dl (0.44-1.00); Estimated GFR > 60 mL/min (>60); GLUCOSE 93 mg/dl (70-220); POTASSIUM 3.4 mmol/L (3.5-5.1); SODIUM 138 mmol/L (135-144); TOTAL PROTEIN 6.8 g/dl (6.1-8.1)
[2018-08-13 12:39] LABS: TROPONIN-I < 0.012 ng/ml (0.000-0.120)
[2018-08-13] MEDS: PIPER-TAZO 3.375 GM IV (PMX) 100 ML IVPB (13:35)
[2018-08-13] MEDS ORDERED: VANCOMYCIN IV PER PHARMACY XX (14:00)
[2018-08-13] MEDS ORDERED: LORAZEPAM 2 MG INJ IV (14:00)
[2018-08-13] MEDS ORDERED: hydrALAzine 20 MG INJ IV (14:00)
[2018-08-13] MEDS ORDERED: morphine (ER) 30 MG TAB PO (14:00)
[2018-08-13] MEDS ORDERED: MAGNESIUM HYDROXIDE 30ML CUP PO (14:00)
[2018-08-13] MEDS ORDERED: NITROGLYCERIN (SL) 0.4 MG TAB SL (14:00)
[2018-08-13] MEDS ORDERED: NACL 0.9% 3 ML SYG IV (14:00)
[2018-08-13] MEDS ORDERED: ALBUTEROL/IPRATROPIUM (NEB) 3 ML AMP HHN (14:00)
[2018-08-13] MEDS ORDERED: ONDANSETRON 4 MG INJ IV (14:00)
[2018-08-13] MEDS ORDERED: ACETAMINOPHEN 325 MG TAB PO (14:00)
[2018-08-13] MEDS ORDERED: DOCUSATE SODIUM 100 MG CAP PO (14:00)
[2018-08-13] MEDS ORDERED: clonAZEPAM 0.5 MG TAB PO (14:00)
[2018-08-13 14:11] LABS: URINE BLOOD (Dip) POC 3+ (NEGATIVE); URINE GLUCOSE (Dip) POC Negative (NEGATIVE); URINE KETONES (Dip) POC Negative (NEGATIVE); URINE LEUKOCYTE EST (Dip) POC Trace (NEGATIVE); URINE NITRITE (Dip) POC Negative (NEGATIVE); URINE TOTAL PROTEIN POC Negative (NEGATIVE)
[2018-08-13] MEDS: POTASSIUM CHLORIDE (SR) 20 MEQ TAB PO (14:17)
[2018-08-13] MEDS: VANCOMYCIN 1 GM (PMX) 250 ML IVPB (14:17)
[2018-08-13 14:26] LABS: ADD UMIC YES; UR ASCORBIC ACID NEGATIVE (NEGATIVE); UR BILIRUBIN (Dip) NEGATIVE (NEGATIVE); UR BLOOD (Dip) 3+ mg/dL (NEGATIVE); UR CLARITY SLIGHTLY CLOUDY (CLEAR); UR COLOR YELLOW (YELLOW); UR GLUCOSE (Dip) NEGATIVE (NEGATIVE); UR KETONES (Dip) NEGATIVE (NEGATIVE); UR LEUKOCYTE ESTERASE (Dip) NEGATIVE Leu/ul (NEGATIVE); UR NITRITE (Dip) NEGATIVE (NEGATIVE); UR RBC 23 /HPF (0-5); UR SPECIFIC GRAVITY (Dip) 1.011 (1.003-1.030); UR TOTAL PROTEIN (Dip) NEGATIVE (NEGATIVE); UR UROBILINOGEN (Dip) NEGATIVE (NEGATIVE); UR WBC 5 /HPF (0-5)
[2018-08-13 14:43] LABS: FREE T4 (FREE THYROXINE) 1.09 ng/dl (0.64-1.79)
[2018-08-13] MEDS: SOD CHLORIDE 0.45% 1,000 ML IV (16:56)
[2018-08-13] MEDS: OXYBUTYNIN 5 MG TAB PO ×2 (16:57→23:38)
[2018-08-13 18:16] LABS: LACTIC ACID 0.6 mmol/L (0.5-2.0)
[2018-08-13] MEDS: morphine 2 MG INJ IV ×2 (18:33→23:37)
[2018-08-13] MEDS: BACLOFEN 10 MG TAB PO (20:53)
[2018-08-13] MEDS: LACTOBACILLUS RHAMNOSUS CAP PO (20:53)
[2018-08-13] MEDS: morphine (ER) 15 MG TAB PO (20:56)
[2018-08-13] MEDS: NORTRIPTYLINE 10 MG CAP PO (22:05)
[2018-08-13] MEDS: clonAZEPAM 0.5 MG TAB PO (23:00)
[2018-08-13] MEDS: GABAPENTIN 400 MG CAP PO (23:37)
[2018-08-14] MEDS: SOD CHLORIDE 0.9% 1,000 ML IV (02:26)
[2018-08-14] MEDS ORDERED: VANCOMYCIN IV PER PHARMACY XX (02:30)
[2018-08-14] MEDS: SOD CHLORIDE 0.45% 1,000 ML IV (03:48)
[2018-08-14] MEDS: PIPER-TAZO 3.375 GM IV (PMX) 100 ML IVPB ×4 (03:49→18:11)
[2018-08-14] MEDS ORDERED: ALBUTEROL/IPRATROPIUM (NEB) 3 ML AMP HHN (04:00)
[2018-08-14] MEDS: OXYBUTYNIN 5 MG TAB PO ×4 (06:00→18:00)
[2018-08-14] MEDS: VANCOMYCIN 1 GM 250 ML IVPB ×2 (06:32→18:44)
[2018-08-14 06:55] LABS: ADD MAN DIFF? NO
[2018-08-14 07:04] LABS: BASOPHILS % 0.5 % (0.0-2.0); EOSINOPHILS # 0.3 10^3/ul (0.0-0.5); EOSINOPHILS % 6.4 % (0.0-7.0); HEMOGLOBIN 8.4 g/dl (12.0-16.0); LYMPHOCYTES # 0.9 10^3/ul (0.8-2.9); LYMPHOCYTES % 22.1 % (15.0-51.0); MONOCYTE # 0.5 10^3/ul (0.3-0.9); MONOCYTES % 11.3 % (0.0-11.0); NEUTROPHIL # 2.4 10^3/ul (1.6-7.5); NEUTROPHILS % 59.7 % (39.0-77.0); PLATELET COUNT 190 10^3/UL (140-415); RED BLOOD COUNT 3.11 10^6/ul (4.20-5.40); RED CELL DISTRIBUTION WIDTH 14.2 % (11.5-14.5)
[2018-08-14 07:04] LABS: WHITE BLOOD COUNT 4.1 10^3/ul (4.8-10.8)
[2018-08-14 07:31] LABS: ANION GAP 6 (5-13); BLOOD UREA NITROGEN 8 mg/dl (7-20); CALCIUM 7.7 mg/dl (8.4-10.2); CARBON DIOXIDE 26 mmol/L (21-31); CHLORIDE 110 mmol/L (97-110); CREATININE 0.47 mg/dl (0.44-1.00); Estimated GFR > 60 mL/min (>60); GLUCOSE 109 mg/dl (70-220); MAGNESIUM 2.2 mg/dl (1.7-2.5); PHOSPHORUS 4.3 mg/dl (2.5-4.9); SODIUM 142 mmol/L (135-144)
[2018-08-14 07:32] LABS: CHOLESTEROL 90 mg/dl (100-200)
[2018-08-14 07:32] LABS: CHOL/HDL RATIO 4.5 RATIO; HDL CHOLESTEROL 20 mg/dl (34-88); LDL CHOLESTEROL,CALCULATED 56 mg/dl; TRIGLYCERIDES 69 mg/dl (0-149)
[2018-08-14 08:54] LABS: HEMOGLOBIN A1C 5.4 % (0-5.9)
[2018-08-14] MEDS: BACLOFEN 10 MG TAB PO ×3 (09:00→19:53)
[2018-08-14] MEDS: LACTOBACILLUS RHAMNOSUS CAP PO ×2 (09:00→19:53)
[2018-08-14] MEDS: ZINC SULFATE 220 MG CAP PO (09:00)
[2018-08-14] MEDS: GABAPENTIN 400 MG CAP PO ×4 (09:00→19:55)
[2018-08-14] MEDS: morphine (ER) 15 MG TAB PO ×2 (09:00→19:55)
[2018-08-14] MEDS: SOD CHLORIDE 0.9% 500 ML IV (10:00)
[2018-08-14] MEDS ORDERED: CEPASTAT LOZENGE MT (12:30)
[2018-08-14] MEDS ORDERED: GUAIFENESIN 20 MG/ML 5ML CUP PO (12:30)
[2018-08-14] MEDS ORDERED: GABAPENTIN 400 MG CAP PO (13:00)
[2018-08-14] MEDS: morphine 2 MG INJ IV (13:04)
[2018-08-14] MEDS ORDERED: PENDING SANTYL ORDER FOR WOUND CARE XX (13:30)
[2018-08-14] MEDS: COLLAGENASE 5 GM (UD JAR) TOP (13:30)
[2018-08-14] MEDS: HYDROCODONE/APAP (5/325) TAB PO (18:10)
[2018-08-14] MEDS: NORTRIPTYLINE 10 MG CAP PO (19:53)
== END 2018-08-14 20:30 | disposition home health service (06) | DRG 593 ==
LOC: 5EC 08-14 00:15 → E/R 11:23 → 2NE 13:08
PROC: 02HV33Z Insertion of Infusion Device into Superior Vena Cava, Percutaneous Approach (ICD-10-PCS; principal; 2018-08-13)
DX: L89.154 Pressure ulcer of sacral region, stage 4 (principal); G82.20 Paraplegia, unspecified; M86.9 Osteomyelitis, unspecified; L89.320 Pressure ulcer of left buttock, unstageable; T14.8XXS Other injury of unspecified body region, sequela; N31.9 Neuromuscular dysfunction of bladder, unspecified; F32.9 Major depressive disorder, single episode, unspecified; Z76.5 Malingerer [conscious simulation]; G89.29 Other chronic pain; Z88.2 Allergy status to sulfonamides; D50.9 Iron deficiency anemia, unspecified; E83.51 Hypocalcemia; E88.09 Other disorders of plasma-protein metabolism, not elsewhere classified; M54.9 Dorsalgia, unspecified; Z98.1 Arthrodesis status; F17.200 Nicotine dependence, unspecified, uncomplicated; E87.6 Hypokalemia
CPT/HCPCS: 36415; 36569; 71045; 76937; 80048; 80053; 80061; 81001; 81003; 81025; 83036; 83605; 83735; 84100; 84439; 84443; 84484; 85025; 85610; 85730; 87040-91; 87086; 93005; 99285-25